=== PATIENT | male | born 1950 | race Caucasian/White ===

== ENCOUNTER 2020-03-10 06:26 | Day surgery (SDC) | payer MEDICARE, BC ==
[2020-03-10] MEDS ORDERED: Lactated Ringers 1,000 ML IV SCH (07:15)
[2020-03-10] MEDS ORDERED: Propofol 200 MG/20 ML SDV ONE (07:25)
[2020-03-10] MEDS ORDERED: fentaNYL 100 MCG/2 ML SDV ONE (07:26)
[2020-03-10] MEDS ORDERED: Midazolam 1 MG/ML 2 ML SDV ONE (07:26)
--- NOTE | 2020-03-10 10:54 | PROC ---
DATE OF PROCEDURE: 03/10/2020 SURGEON: Bryant Lyons MD INDICATIONS: Gene is a 70-year-old male who comes in for a colonoscopy because of a positive Cologuard. The risks and benefits were explained and the patient was taken to the OR. PROCEDURE IN DETAIL: Anesthesia was given by nurse turn down worker. During the procedure, we used 2 mg of Versed, 100 mcg of fentanyl, and 100 mg of propofol. The Olympus 180L scope was used. It was placed in the rectum and advanced under direct vision. Examination of the prostate reveals no significant prostate problem at all. The tube was placed into the rectum and advanced under direct vision. We did get to the 1st part of the transverse colon, was unable to advance further. We tried multiple times, added air, water, and suction, was unable to get to an area that appeared to be swollen. We did also call Dr. Greene, the general surgeon, who observed this as well. The procedure was stopped and upon retraction of the tube, noted multiple diverticula. No other lesions were noted. The tube was removed. The patient tolerated the procedure well. PREOPERATIVE DIAGNOSIS: Positive Cologuard. POSTOPERATIVE DIAGNOSIS: Narrowed area of erythema at the 1st part of the transverse or mid transverse area. Unable to advance further. We will do a lower GI today and make further arrangements as deemed necessary. Bryant Lyons MD /[id number]
[2020-03-10] MEDS ORDERED: Barium Sulfate 105% w/v Susp 1,900 ML Bottle PO ONE (11:30)
[2020-03-10 12:04] VITALS: BP 162/83; PULSE 79
--- NOTE | 2020-03-10 13:13 | CR ---
Barium Enema Comp CLINICAL HISTORY: Incomplete colonoscopy FINDINGS: Preliminary film of the abdomen is unremarkable. Barium flowed freely from the rectum to the cecum. Ileocecal valve was identified. There was some specificity of the cecum but no persistent filling defects on fluoroscopy. . No obstructing lesions are seen. There is some diffuse diverticulosis without evidence of diverticulitis. IMPRESSION: Diverticulosis without evidence diverticulitis Intermittent cecal spasm with no persistent filling defects or annular constricting lesions identified
== END 2020-03-10 12:21 | disposition home or self-care (01) ==
LOC: JP.SDS 06:26
PROVIDERS: ATTEND Internal Medicine
DX: K57.30 Diverticulosis of large intestine without perforation or abscess without bleeding (principal); K63.89 Other specified diseases of intestine; E66.9 Obesity, unspecified; Z01.812 Encounter for preprocedural laboratory examination; Z20.828 Contact with and (suspected) exposure to other viral communicable diseases; Z53.9 Procedure and treatment not carried out, unspecified reason; Z68.26 Body mass index [BMI] 26.0-26.9, adult
CPT/HCPCS: 74270; 74270-26; J2250; J2704; J3010; J7120